=== PATIENT | female | born 1980 | race Caucasian/White ===

== ENCOUNTER 2020-11-30 04:46 | Inpatient (IN) | payer OTHER, MEDICAID ==
[2020-11-30] VITALS (26 sets, daily range): BP systolic 105–165; BP diastolic 62–100
[~2020-11-30] VITALS: Ht 160 cm; Wt 49.9 kg
[2020-11-30 05:18] LABS: BE -29.6 mmol/L (-2 to +3); PCO2 VENOUS 19.2 mmHg (41.0-51.0); PO2 VENOUS 65.5 mmHg (35.0-45.0)
[2020-11-30 05:23] LABS: HEMATOCRIT 26.6 % (37.0-47.0); HEMOGLOBIN 7.7 gm/dL (12.0-15.0); MCH 28.1 pg (26.0-34.0); MCHC 29.1 g/dL (28.0-37.0); MCV 96.7 fL (80.0-100.0); MPV 8.1 fl. (7.2-11.1); NUCLEATED RBCS 0 /100WBC; PLATELET COUNT* 183 thou/uL (150-400); RBC 2.75 mil/uL (4.20-5.00); RDW-CV 16.5 % (10.5-14.5); WBC 5.9 thou/uL (4.0-11.0)
[2020-11-30 05:31] LABS: INR 0.9
[2020-11-30 05:37] LABS: BUN 43 mg/dL (7-18); CALCIUM 7.8 mg/dL (8.5-10.1); CHLORIDE 97 mmol/L (98-107); CREATININE 2.5 mg/dL (0.6-1.3); POTASSIUM 5.3 mmol/L (3.5-5.1); SODIUM 129 mmol/L (136-145)
[2020-11-30 05:39] LABS: ANION GAP 27 mmol/L (7-16)
[2020-11-30 05:39] LABS: URINE BILIRUBIN NEGATIVE (Negative); URINE BLOOD 1+ (Negative); URINE COLOR YELLOW; URINE GLUCOSE-RANDOM 3+ (Negative); URINE KETONES 2+ (Negative); URINE LEUKOCYTES-REFLEX NEGATIVE (Negative); URINE NITRITE-REFLEX NEGATIVE (Negative); URINE PROTEIN 3+ (Negative); URINE UROBILINOGEN 0.2 E.U./dl (0.2-1.0)
[2020-11-30 05:40] LABS: CO2 < 5 mmol/L (21-32); GLUCOSE 695 mg/dL (70-99)
[2020-11-30 05:43] LABS: URINE CLARITY SL HAZY
[2020-11-30 05:46] LABS: AMP/METHAMP POSITIVE (Negative); BARBITURATES Negative (Negative); BENZODIAZEPINES Negative (Negative); COCAINE Negative (Negative); METHADONE Negative (Negative); OPIATES Negative (Negative); PCP Negative (Negative); THC POSITIVE (Negative)
[2020-11-30 05:49] LABS: ALBUMIN 1.9 g/dL (3.4-5.0); ALKALINE PHOSPHATASE 125 U/L (46-116); LIPASE 953 U/L (73-393); NT-PRO BRAIN NAT PEPTIDE 25853 pg/mL (<300); SGOT 12 U/L (15-37); SGPT 12 U/L (30-65); TOTAL BILIRUBIN 0.3 mg/dL (<0.1-1.0); TOTAL PROTEIN 6.4 g/dL (6.4-8.2)
[2020-11-30 05:54] LABS: AMORPHOUS URATES Many /LPF (None Seen); CASTS None Seen /LPF (None Seen); MUCUS 0-3 Light strn/LPF (None Seen); SQUAMOUS 0-3 Few /LPF (0-3); URINE RBC 3-10 Few /HPF (0-2); URINE WBC-REFLEX 0-5 Rare /HPF (0-5)
[2020-11-30 06:47] LABS: ABSOLUTE BASOPHILS 0.2 thou/uL (0.0-0.2); ABSOLUTE LYMPHOCYTES 0.7 thou/uL (0.8-5.3); PLATELET ESTIMATE ADEQUATE
--- NOTE | 2020-11-30 08:10 | NUR ---
NO RATE CHANGE NEEDED TO INSULIN GTT.
--- NOTE | 2020-11-30 10:45 | NUR ---
RIGHT BASILIC VESSEL ACCESSED FOR 5 PRYDEINIG TRIPLE PICC. LINE PRE-TRIMMED TO 34 CM AND ADVANCED TO THE ZERO MOHSEN WITH NO RESISTANCE MET. UPPER ARM CIRCUMFERENCE ABOVE INSERTION SITE= 8 1/4". SHERLOCK MAGNET AND 3CG CONFIRMATION OF TIP TERMINATION AT THE CAVOATRIAL JUNCTION APPRECIATED. GUISDE WIRE [id number], LINE FLUSHED AND INSERTION SITE DRESSED. REPORT GIVEN TO NATHAN SKAGGS.
[2020-11-30 11:38] LABS: BE -19.1 mmol/L (-2 to +3); PCO2 29.7 mmHg (35.0-45.0)
[2020-11-30 11:41] LABS: PO2 49.5 mmHg (75.0-100.0); pH 7.099 (7.340-7.450)
[2020-11-30 12:35] LABS: URINE BLOOD 2+ (Negative); URINE CLARITY CLEAR; URINE COLOR YELLOW; URINE GLUCOSE-RANDOM 3+ (Negative); URINE KETONES 2+ (Negative); URINE LEUKOCYTES NEGATIVE (Negative); URINE NITRITE NEGATIVE (Negative); URINE PROTEIN 3+ (Negative); URINE SPECIFIC GRAVITY 1.025 (1.005-1.030); URINE UROBILINOGEN 0.2 E.U./dl (0.2-1.0)
[2020-11-30 12:50] LABS: ICTOTEST (BILI CONFIRMATORY) Negative (Negative); URINE BILIRUBIN 1+ (Negative)
[2020-11-30 12:56] LABS: BACTERIA 1-9 Few /HPF (None Seen); CASTS None Seen /LPF (None Seen); CRYSTALS None Seen /LPF (None Seen); SQUAMOUS 0-3 Few /LPF (0-3); URINE RBC 0-2 Rare /HPF (0-2); URINE WBC 0-5 Rare /HPF (0-5)
[2020-11-30 13:52] LABS: CALCIUM 6.3 mg/dL (8.5-10.1); CREATININE 1.9 mg/dL (0.6-1.3); POTASSIUM 3.2 mmol/L (3.5-5.1)
[2020-11-30 13:55] LABS: ALBUMIN 1.3 g/dL (3.4-5.0); MAGNESIUM 1.4 mg/dL (1.8-2.4); PHOSPHORUS* 4.6 mg/dL (2.5-4.9)
[2020-11-30 16:41] LABS: HEMOGLOBIN 7.3 gm/dL (12.0-15.0)
--- NOTE | 2020-11-30 16:48 | EKG ---
[place] [address] ELECTROCARDIOGRAM REPORT Name: RADHA HINES Room: [address] ADM IN M.R.#: [id number] Admission: 11/30/20 Attend Phys: Kana Bernal Discharge: Date of : 80 Date of Service: 11/30/20 0450 Report #: [id number] THIS REPORT FOR: //name// [facility] ED Test Date: 2020-11-30 Test Time: 04:50:08 Pat Name: RADHA HINES Department: Room: [facility] Gender: F Mail Examiner: MS : 1980 Requested By: Hyacinth Singh Order Number: [id number] MD: Kenneth Huerta Measurements Intervals [place] Rate: 92 P: -71 HI: 206 QRS: 12 QRSD: 96 T: 71 QT: 473 QTc: 586 Interpretive Statements Sinus or ectopic atrial rhythm Baseline artifact Prolonged HI interval Probable left atrial enlargement Borderline low voltage, extremity leads Abnormal T, consider ischemia, diffuse leads Prolonged QT interval No previous ECG available for comparison Electronically Signed On 11-30-2020 16:48:26 CDT by Kenneth Huerta [email or web address] <ELECTRONICALLY SIGNED> By: Kenneth Huerta MD, [facility] 11/30/20 1648 0450 0450 Kenneth Huerta MD, FAC /EPI
[2020-11-30 16:53] LABS: CALCIUM 7.1 mg/dL (8.5-10.1); CREATININE 2.2 mg/dL (0.6-1.3); POTASSIUM 3.3 mmol/L (3.5-5.1)
[2020-11-30 16:56] LABS: ALBUMIN 1.6 g/dL (3.4-5.0); MAGNESIUM 1.5 mg/dL (1.8-2.4); PHOSPHORUS* 4.8 mg/dL (2.5-4.9)
[2020-11-30 17:58] LABS: CALCIUM 6.8 mg/dL (8.5-10.1); CREATININE 2.2 mg/dL (0.6-1.3)
[2020-11-30 18:01] LABS: ALBUMIN 1.5 g/dL (3.4-5.0); MAGNESIUM 1.4 mg/dL (1.8-2.4); PHOSPHORUS* 4.5 mg/dL (2.5-4.9)
--- NOTE | 2020-11-30 18:46 | NUR ---
pt admitted to icu at 11 this typewriters functional tester assumed care of pt. 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 spoke with pt, pt calmed down had some water insulin gtt infusing cyst noted on her nack pt face is swollen has one tooth in mouth the rest appear to be black root tips. After receiving water pain meds pt calmed down ativan ordered for withdrawal helped pt relax and now resting will cont to monitor
[2020-12-01] VITALS (9 sets, daily range): BP systolic 129–156; BP diastolic 74–99
[2020-12-01 05:10] LABS: PCO2 35.2 mmHg (35.0-45.0); PO2 82.7 mmHg (75.0-100.0)
[2020-12-01 05:11] LABS: pH 7.294 (7.340-7.450)
[2020-12-01 05:34] LABS: CALCIUM 6.9 mg/dL (8.5-10.1); MAGNESIUM 1.4 mg/dL (1.8-2.4)
[2020-12-01 05:53] LABS: POTASSIUM 5.4 mmol/L (3.5-5.1)
[2020-12-01 05:57] LABS: % SATURATION 69 % (20-39); IRON 78 ug/dL (50-175)
--- NOTE | 2020-12-01 08:14 | NUR ---
PT PROGRESSING TOWARDS GOALS; PT GOAL TO ADVANCE DIET TOLERATED BG MAINTAINED, STARTED ON LANTUS; PROGRESSED TOWARDS GOAL OF ORIENATION TO SELF, SITUATION AND MONTH; PT TRACING SR, SEE PT REASSESSMENTS; PT STABLE DOWN GRADE TO TELE STATUS; REPORT CALLED TO TONY ON TELE; PT TRANSFER TO TELE VIA WC TO ROOM 201
[2020-12-01 13:18] LABS: ABSOLUTE BASOPHILS 0.1 thou/uL (0.0-0.2); ABSOLUTE LYMPHOCYTES 0.6 thou/uL (0.8-5.3); ABSOLUTE MONOCYTES 0.3 thou/uL (0.0-1.2); ABSOLUTE NEUTROPHILS 7.2 thou/uL (1.6-8.1); BASOPHILS 0.7 %; EOSINOPHILS 0.4 %; HEMATOCRIT 26.2 % (37.0-47.0); HEMOGLOBIN 8.7 gm/dL (12.0-15.0); LYMPHOCYTES 7.8 %; MCH 27.4 pg (26.0-34.0); MCHC 33.2 g/dL (28.0-37.0); MCV 82.4 fL (80.0-100.0); NUCLEATED RBCS 0 /100WBC; PLATELET COUNT* 127 thou/uL (150-400); POLYS 87.1 %; RBC 3.18 mil/uL (4.20-5.00); RDW-CV 16.7 % (10.5-14.5); WBC 8.2 thou/uL (4.0-11.0)
[2020-12-01 13:25] LABS: CALCIUM 7.1 mg/dL (8.5-10.1); CREATININE 1.9 mg/dL (0.6-1.3)
[2020-12-01] MEDS ORDERED: BACTRIM DS TAB1 EAC1 PO (16:59)
[2020-12-01] MEDS ORDERED: NORVASC5 MG PO (17:13)
[2020-12-01] MEDS ORDERED: NOVOLOG100 UNIT/M SUBQ (17:13)
[2020-12-01] MEDS ORDERED: REGLAN 10 MG TA10 MG PO (17:13)
--- NOTE | 2020-12-01 18:50 | NUR ---
ASSUMED PT CARE AT 0730, PT ANSWERS ORIENTATION QUESTIONS APPROPRIATELY BUT WAS FORGETFUL AND ASKED THE SAME QUESTIONS MULTIPLE TIMES, PT LETHARGIC AND SLEPT MOST OF SHIFT BUT WAS TEARFUL AND AGITATED WHEN AWAKE. PT DIET ADVANCED TO CARB CONTROLLED AND PT TOLERATED WELL UNTIL LUNCH, PT HAD AN EPISODE OF EMESIS, DR MARCANO NOTIFIED AND PT RECEIVED ZOFRAN AT THIS TIME, NO FURTHER EPISODES OF EMESIS OR C/O NAUSEA. PT'S SUGARS STABLE THROUGHOUT DAY, EDUCATION PROVIDED TO PT ON IMPORTANCE OF FOLLOWING PCP ORDERED REGIMEN FOR INSULIN AND CHECKING SUGARS AT HOME. STRONGLY ENCOURAGED PT TO F/U W/ PCP IN A FEW DAYS TO GO OVER DIABETES MEDS AND MAKE SURE THEY'RE APPROPRIATE FOR PT. PT VERBALIZED WANTING TO GO HOME THROUGHOUT SHIFT SO SINCE SUGARS NOW STABLE AND EDUCATION PROVIDED W/ F/U APPTS RECOMMENDED TO PT, DC ORDERS RECEIVED. PICC, SABA AND TECHNICAL PRODUCER REMOVED. PT'S SO IN ROOM AND ALSO GIVEN DIABETES AND F/U EDUCATION. PT STATES SHE HAD CLOTHES AND A PHONE WHEN SHE CAME IN, PER ED NOTES PT WAS BROUGHT IN UNRESPONSIVE AND DID HAVE CLOTHES AND AN ID AND INSURANCE CARD BUT NO PHONE. I CALLED THE ICU, SECURITY AND ED AND COULD NOT LOCATE PT'S BELONGINGS. AT THIS POINT, PT WAS INCREASINGLY AGITATED AND CUSSING AND WANTING TO "JUST LEAVE", I UPDATED PT ABOUT TRYING TO LOCATE BELONGINGS, SHE STATED SHE WOULD JUST LIKE TO LEAVE SO PT WHEELED OUT IN W/ NURSING STAFF TO SO'S VEHICLE AT APPROX 1820 W/ PAPERWORK.
== END 2020-12-01 18:20 | disposition home or self-care (01) | DRG 639 ==
LOC: M.ERS 04:46 → M.ICU 07:16 → M.TBA-ER 07:16 → M.ICU 10:10 → M.2W 12-01 06:15
PROVIDERS: Emergency Medicine; Internal Medicine; ADMIT Internal Medicine; ATTEND Internal Medicine
PROC: 02HV33Z Insertion of Infusion Device into Superior Vena Cava, Percutaneous Approach (ICD-10-PCS; principal; 2020-11-30)
PROC: B548ZZA Ultrasonography of Superior Vena Cava, Guidance (ICD-10-PCS; principal; 2020-11-30)
PROC: 30233N1 Transfusion of Nonautologous Red Blood Cells into Peripheral Vein, Percutaneous Approach (ICD-10-PCS; principal; 2020-11-30)
DX: E10.10 Type 1 diabetes mellitus with ketoacidosis without coma (principal); Z20.822 Contact with and (suspected) exposure to COVID-19